=== PATIENT | female | born 1935 | race Caucasian/White ===

== ENCOUNTER 2017-11-13 14:04 | Inpatient (IN) ==
--- NOTE | 2017-11-13 15:04 | Family Practice History&Phys ---
History of Present Illness Chief complaint: Shortness of breath HPI: Over the last several days she has been getting progressively more short of breath. She's developed a cough in the last 24 hours. She recently had a chest x -ray that said probable pneumonia. This was done in [place]. She denies chest pain. She denies fevers chills sweats nausea or vomiting. She did have a blackeye on Sunday morning but forgot how she got it. She denies headache. She denies neck pain. She does have moderate dementia. PFSH Alzheimer's type dementia, depression/anxiety, hypertension, iron deficiency anemia, gastroesophageal reflux disease Surgical History: Colonoscopy and EGD [place] [address] Angel. Gastritis is the only finding. - Social History Smoking status: Never smoker Medications Home Medications Medication Instructions Recorded Confirmed Type Aspirin [Aspir 81] 1 tab PO DAILY #0 tab 03/13/14 History Fish Oil/Dha/Epa [Fish Oil 1,200 1 cap PO DAILY #0 03/13/14 History mg Fish Oil] Lisinopril 10 tab PO BID #0 tab 03/13/14 History Venlafaxine HCl [Venlafaxine HCl 150 mg PO DAILY #0 03/13/14 History ER] dilTIAZem HCl [Cardizem Cd] 120 mg PO BID #0 cap 03/13/14 History Allergies Allergy/AdvReac Type Severity Reaction Status Date / Time NKDA Allergy Mild Uncoded 03/21/10 23:54 Exam Narrative: This is a well-developed adult female who is awake alert and no acute distress. She is very weak and it takes two people to transfer her. Her oxygen saturation's at home range from 72 to 83%. In the clinic are 89 to 91 %. Blood pressure 151/73. Heart rate 101. Her weight is 118 pounds. Pupils are equally round and reactive to light. She has a bruise around her left eye socket. Oropharynx looks normal. Tympanic membranes look normal. Neck is supple without lymphadenopathy. Lungs are course in the bases bilaterally. There's occasional wheezes. Chest x- ray done yesterday showed some pneumonia at [facility]. Heart is regular rhythm and rate. EKG showed left bundle branch block. Abdomen soft nontender nondistended quite thin. Extremities are is no edema or cyanosis. Results - Labs All other labs normal. Assessment and Plan - Assessment and Plan (1) Pneumonia, bacterial Status: Acute She has had a dose of Rocephin and Zithromax today. Tomorrow will start with 1 g IV q.d. And Zithromax for 250 mg daily. Will order supplemental oxygen. Follow -up chest x-ray tomorrow (2) Physical debility Status: Acute I will order physical therapy. For now up with assistance. (3) Iron deficiency anemia Status: Acute Recheck hemoglobin daily. Iron is ordered. (4) AD (Alzheimer's disease) Status: Chronic (5) Depression, major, recurrent Status: Chronic
--- OUTSIDE RECORDS SUMMARY | 2017-11-13 16:21 | External Medical Summary | Summary of Care ---
:1935 Author Name Paco Benavidez M.D. Address [address], [place] [address] Care Team Providers Name Role Phone Paco Benavidez M.D. 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 Refills: 0 Paco Benavidez M.D. Started 07-Jun-2015 ActiveCartia XT 180 MG Oral Capsule Extended Release 24 Hour Take 1 capsule twice daily Refills: 0 Paco Benavidez M.D. Started 07-Jun-2015 ActiveMirtazapine 15 MG Oral Tablet TAKE 1/2 TABLET AT BEDTIME. Refills: 0 Paco Benavidez M.D. Started 07-Jun-2015 ActiveLisinopril 20 MG Oral Tablet take 1/2 tablet twice daily Refills: 0 Paco Benavidez M.D. Started 07-Jun-2015 ActiveIron 325 (65 Fe) MG Oral Tablet TAKE 1 TABLET TWICE DAILY. Refills: 0 Paco Benavidez M.D. Started 07-Jun-2015 ActiveLutein 20 MG Oral Capsule TAKE DIRECTED. Refills: 0 Paco Benavidez M.D. Started 07-Jun-2015 ActiveFish Oil 1200 MG Oral Capsule TAKE DIRECTED. Refills: 0 Paco Benavidez M.D. Started 07-Jun-2015 ActiveVitamin D3 1000 UNIT Oral Capsule TAKE DIRECTED. Refills: 0 Paco Benavidez M.D. Started 07-Jun-2015 ActiveAspirin 81 MG Oral Tablet TAKE 1 TABLET DAILY. Quantity: 30 Refills: 0 Paco Benavidez M.D. Started 07-Jun-2015 Active Allergies and Adverse Reactions Name Dates Details No Known Drug Allergies Status: Active Past Medical History Name Dates Details History of Frequent falls (V15.88, R29.6) Status: Resolved History of head injury (V15.59, Z87.828) Status: Resolved History of hypertension (V12.59, Z86.79) Status: Resolved History of syncope (V15.89, Z87.898) Status: Resolved Procedures Procedure Dates Details History of Hysterectomy History of Tonsillectomy Neuro CSF Profile I 9019 Ordered:11-Jun-2015 NUC CISTERNOGRAM INJ Ordered:08-Jun-2015 Immunization Name Dates Details Immunizations not documented Family History Mother Name Dates Details Family history of Healthy adult (V70.0, Z00.00) Status: Active Father Name Dates Details Family history of myocardial infarction (V17.3, Z82.49) Status: Active Family history of Memory problem (780.93, R41.3) Status: Active Brother Name Dates Details Family history of cardiac disorder (V17.49, Z82.49) Status: Active Family history of Colon cancer (153.9, C18.9) Status: Active Family history of malignant neoplasm of urinary bladder (V16.52, Z80.52) Status: Active Social History Name Dates Details Smoking StatusNever smoker Vital Signs Date Test Result Details 07-Jun-2015 10:32 BP Systolic 118 mm[Hg] Status: BP Diastolic 62 mm[Hg] Status: Heart Rate 84 /min Status: Height 66 in Status: Weight 112.4 lb Status: Body Mass Index Calculated 18.14 kg/m2 Status: Body Surface Area Calculated 1.57 m2 Status: Results Date Description Value Details Results not documented Plan of Care Planned Observations Name Dates Details Planned Goals not documented Goal Planned Encounters Appointment; Provider: Paco Benavidez On 16-Jul-2015 08:30 Appointment; Provider: Schedule Radiology On 09-Jul-2015 10:30 Appointment; Provider: Schedule Radiology On 06-Jul-2015 14:00 Appointment; Provider: Schedule Radiology On 06-Jul-2015 10:30 Appointment; Provider: Schedule Radiology On 06-Jul-2015 10:30 Instructions Instructions not documented Encounters Appointment; Paco Benavidez On 22-Jun-2015 Encounter Diagnosis: Problem not documented 12:00 Appointment; Paco Benavidez On 07-Jun-2015 Encounter Diagnosis: Problem not documented 10:00
--- OUTSIDE RECORDS SUMMARY | 2017-11-13 16:21 | External Medical Summary | Summary of Care ---
:1935 Author Name Paco Benavidez M.D. Address Unavailable Unavailable , Care Team Providers Name Role Phone Paco Benavidez M.D. 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 Refills: 0 Paco Benavidez M.D. 07-Jun-2015 Active Cartia XT 180 MG Oral Capsule Extended Release 24 Hour Take 1 capsule twice daily Refills: 0 Paco Benavidez M.D. 07-Jun-2015 Active Lisinopril 20 MG Oral Tablet take 1/2 tablet twice daily Refills: 0 Paco Benavidez M.D. 07-Jun-2015 Active Fish Oil 1200 MG Oral Capsule TAKE DIRECTED. Refills: 0 Paco Benavidez M.D. 07-Jun-2015 Active Vitamin D3 1000 UNIT Oral Capsule TAKE DIRECTED. Refills: 0 Paco Benavidez M.D. 07-Jun-2015 Active Aspirin 81 MG TABS TAKE 1 TABLET DAILY. Quantity: 30 Refills: 0 Paco Benavidez M.D. 07-Jun-2015 Active Galantamine Hydrobromide ER 16 MG Oral Capsule Extended Release 24 Hour TAKE 1 CAPSULE Daily Quantity: 30 Refills: 5 Paco Benavidez M.D. 17-May-2016 Active LORazepam 0.5 MG Oral Tablet TAKE 1/2 TO 1 TABLET TWICE DAILY NEEDED. Refills: 0 Paco Benavidez M.D. 22-Aug-2016 Active BuPROPion HCl ER (XL) 150 MG Oral Tablet Extended Release 24 Hour TAKE 1 TABLET DAILY. Refills: 0 Paco Benavidez M.D. 21-Nov-2016 Active Allergies and Adverse Reactions Name Dates Details No Known Drug Allergies (Allergy) Status: Active Past Medical History Name Dates Details History of Frequent falls (V15.88, R29.6) Status: Resolved History of head injury (V15.59, Z87.828) Status: Resolved History of hypertension (V12.59, Z86.79) Status: Resolved History of syncope (V15.89, Z87.898) Status: Resolved Procedures Procedure Dates Details History of Hysterectomy History of Tonsillectomy Procedures not documented Immunization Name Dates Details Immunizations not documented Family History Mother Name Dates Details Family history of Healthy adult Status: Active Father Name Dates Details Family history of myocardial infarction (V17.3, Z82.49) Status: Active Family history of Memory problem (780.93, R41.3) Status: Active Brother Name Dates Details Family history of cardiac disorder (V17.49, Z82.49) Status: Active Family history of Colon cancer (153.9, C18.9) Status: Active Family history of malignant neoplasm of urinary bladder (V16.52, Z80.52) Status: Active Social History Name Dates Details - Status: Smoking Status Name Dates Details Never smoker Vital Signs Date Test Result Details 21-Nov-2016 09:26 BP Systolic 110 mm[Hg] Status: Comments: Location: RUE; Position: Sitting BP Diastolic 64 mm[Hg] Status: Comments: Location: RUE; Position: Sitting Heart Rate 74 /min Status: Comments: Location: ; Weight 111.8 lb Status: Physical Findings 98 Status: Comments: O2 Saturation Body Mass Index Calculated 18.04 kg/m2 Status: Body Surface Area Calculated 1.56 m2 Status: Results Date Description Value Details Results not documented Plan of Care Name Dates Details Planned Observations Planned Goals not documented Instructions Name Dates Details Instructions not documented Encounters Appointment; Paco Benavidez M.D. On 22-Aug-2016 Encounter Diagnosis: Problem not documented 09:15 Appointment; Paco Benavidez M.D. On 17-May-2016 Encounter Diagnosis: Problem not documented 09:15 Appointment; Paco Benavidez M.D. On 19-Nov-2015 Encounter Diagnosis: Problem not documented 09:00 Appointment; Paco Benavidez M.D. On 16-Jul-2015 Encounter Diagnosis: Problem not documented 08:30 Appointment; Paco Benavidez M.D. On 22-Jun-2015 Encounter Diagnosis: Problem not documented 12:00 Appointment; Paco Benavidez M.D. On 07-Jun-2015 Encounter Diagnosis: Problem not documented 10:00
--- OUTSIDE RECORDS SUMMARY | 2017-11-13 16:21 | External Medical Summary | Summary of Care ---
:1935 Author Name Paco Benavidez M.D. Address [address] [place], [place] [id number] Care Team Providers Name Role Phone Paco [...]
--- OUTSIDE RECORDS SUMMARY | 2017-11-13 16:22 | External Medical Summary | Summary of Care ---
:1935 Author Name Paco Benavidez M.D. 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 Refills: 0 Paco Benavidez M.D. Start 07-Jun-2015 Active Cartia XT 180 MG Oral Capsule Extended Release 24 Hour Take 1 capsule twice daily Refills: 0 Pramod Whatley [facility] 07-Jun-2015 Active Mirtazapine 15 MG Oral Tablet TAKE 1/2 TABLET AT BEDTIME. Refills: 0 Pramod Whatley [facility] 07-Jun-2015 Active Lisinopril 20 MG Oral Tablet take 1/2 tablet twice daily Refills: 0 Pramod Whatley [facility] 07-Jun-2015 Active Iron 325 (65 Fe) MG Oral Tablet TAKE 1 TABLET TWICE DAILY. Refills: 0 Paco Benavidez M.D. Tone 07-Jun-2015 Active Lutein 20 MG Oral Capsule TAKE DIRECTED. Refills: 0 Paco Benavidez M.D. [facility] 07-Jun-2015 Active Fish Oil 1200 MG Oral Capsule TAKE DIRECTED. Refills: 0 Pramod Whatley [facility] 07-Jun-2015 Active Vitamin D3 1000 UNIT Oral Capsule TAKE DIRECTED. Refills: 0 Pramod Whatley [facility] 07-Jun-2015 Active Aspirin 81 MG TABS TAKE 1 TABLET DAILY. Quantity: 30 Refills: 0 Pramod Whtaley [facility] 07-Jun-2015 Active Allergies and Adverse Reactions Name [...] smoker Vital Signs Date Test Result Details No Known Vitals to report Results Date Description Value Details Results not documented Plan of Care Name Dates Details Planned Observations Planned Goals not documented Planned Encounters Appointment; Provider: Paco Benavidez M.D. On 16-Aug-2016 09:45 Instructions Name Dates Details Instructions not documented Encounters Appointment; Paco Benavidez M.D. On 19-Nov-2015 Encounter Diagnosis: Problem not documented 09:00 Appointment; Paco Benavidez M.D. On 16-Jul-2015 Encounter Diagnosis: Problem not documented 08:30 Appointment; Paco Benavidez M.D. On 22-Jun-2015 Encounter Diagnosis: Problem not documented 12:00 Appointment; Paco Benvaidez M.D. On 07-Jun-2015 Encounter Diagnosis: Problem not documented 10:00
--- OUTSIDE RECORDS SUMMARY | 2017-11-13 16:22 | External Medical Summary | Summary of Care ---
[...] Refills: 0 Paco Benavidez M.D. 07-Jun-2015 Active Iron 325 (65 Fe) MG Oral Tablet TAKE 1 TABLET TWICE DAILY. Refills: 0 Paco Benavidez M.D. 07-Jun-2015 Active Lutein 20 MG Oral Capsule [...] 1 TABLET TWICE DAILY NEEDED. Refills: 0 Pramod Whatley Paco Reema Wayne 22-Aug-2016 Active Memantine HCl - 5 (28)-10 (21) MG Oral Tablet TAKE DIRECTED. Quantity: 3 Refills: 5 Pramod Whatley Paco Reema Wayne 22-Aug-2016 Active Allergies and Adverse Reactions Name Dates [...] smoker Vital Signs Date Test Result Details 22-Aug-2016 09:12 BP Systolic 118 mm[Hg] Status: Comments: Location: LUE; Position: Sitting BP Diastolic 74 mm[Hg] Status: Comments: Location: LUE; Position: Sitting Heart Rate 80 /min Status: Comments: Location: ; Height 66 in Status: Weight 112.8 lb Status: Physical Findings 97 Status: Comments: O2 Saturation Body Mass Index Calculated 18.21 kg/m2 Status: Body Surface Area Calculated 1.57 m2 Status: Results Date Description Value Details Results not documented Plan of Care Name Dates Details Planned Observations Planned Goals not documented Planned Encounters Appointment; Provider: Paco Benavidez M.D. On 21-Nov-2016 09:15 Interventions Provided Medication ChangesMemantine HCl - 5 (28)-10 (21) MG Oral Tablet - Start Instructions Name Dates Details Instructions not documented Encounters Appointment; Paco Benavidez M.D. On 17-May-2016 Encounter [...]
--- OUTSIDE RECORDS SUMMARY | 2017-11-13 16:22 | External Medical Summary | Summary of Care ---
:1935 Author Name Paco Benavidez M.D. Address [address], [place] [address] Care Team Providers Name Role Phone Paco Benavidez M.D. 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
--- OUTSIDE RECORDS SUMMARY | 2017-11-13 16:22 | External Medical Summary | Summary of Care ---
:1935 Author Name Paco Benavidez M.D. Address [address] [place], [place] [id number] Care Team Providers Name Role Phone Paco Benavidez M.D. 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 Report to follow. (Better) 12:52 GLUCOSE, CSF 1132 GLUCOSE, CSF 61.0 mg/dL Range: 40.0-70.0 (Better) 12:52 PROTEIN, CSF 1129 PROTEIN, CSF 38 mg/dL (Better) Range: 15-45 13:02 CELL COUNT, CSF 7628 RBC (CSF) 7 per uL (Better) WBC (CSF) 1 per uL (Better) MONONUCLEAR WBC (CSF) 0 per uL (Better) POLYMORPH. CELLS (CSF) 1 per uL (Better) 13:09 GLUCOSE 1100 GLUCOSE 89 mg/dL (Better) Range: 70-100 09-Jul-2015 09:48 CSF CULTURE [id number] Comments: [facility] performed at: [facility], [address] [place] [address], [address] [place] [address], Line Repairer: Paco Douglas D.O., MPHQuest Collection Date/Time: [id number] Results Received Date/Time: [id number] Reported Date/Time: [id number] performed at: [facility], [address] [place] [address], [address] [place] [address], Line Repairer: Paco Douglas D.O., MPHQuest Collection Date/Time: [id number] Results Received Date/Time: [id number] Reported Date/Time: [id number] Acce ssion #: [id number] performed at: [facility], [address] [place] [address], [address] [place] [address], Line Repairer: Paco Douglas D.O., MPHQuest Collection Date/Time: [id number] est Results Received Date/Time: [id number] Reported Date/Time: [id number] CULTURE, CSF SEE NOTE Comments: CULTURE, CSF MICRO NUMBER: [id number] TEST STATUS: FINAL SPECIMEN SOURCE: CEREBROSPINAL FLUID (CSF ) SPECIMEN QUALITY: ADEQUATE GRAM STAIN: Gram stain prepared by cytospin (Abnormal) Rare White blood cells seen No organisms seen RESULT: No Growth[NM]----- 08-Jul-2015 11:13 XN NUC CISTERNOGRAM (48 Comments: Exam Date: 07/08/2015 10:29Dictation Date: 07/08/2015 11:13 HR) [id number] XN NUC CISTERNOGRAM (48 (Better) HR) 14:40 CRYPTOCOCCAL ANTIGEN Comments: [facility] performed at: [facility], [id number] [place] [address], , Line Repairer: Duglas Paulson M.D.,PhDQue [id number] st Collection Date/Time: [id number] Results Received Date/ Time: [id number] Reported Date/Time: [id number] SOURCE: CSF (Better) Comments: [AMD]----- CRYPTOCOCCAL AG SCREEN Not Detected Range: Not Detected (Better) Comments: Culture should be performed on the initial positiveantigen test in order to recover the causative organismfor precise identification (C. neoformans vs C. gattii)and potential susceptibility testing. [AMD]----- 14:40 VDRL, CSF [id number] Comments: Testing performed at: [] [address], [address], , Line Repairer: Paco Acuña MD VDRL, CSF Non Reactive Range: Non [place]:<1:1 (Better) Plan of Care Planned Observations Name Dates Details Planned Goals not documented Goal Planned Encounters Appointment; Provider: Paco Benavidez On 19-Nov-2015 09:00 Appointment; Provider: Schedule Radiology On 06-Jul-2015 14:00 Appointment; Provider: Schedule Radiology On 06-Jul-2015 10:30 Appointment; Provider: Schedule Radiology On 06-Jul-2015 10:30 Instructions Instructions not documented Encounters Appointment; Paco Benavidez On 16-Jul-2015 Encounter Diagnosis: Problem not documented 08:30 Appointment; Paco Benavidez On 22-Jun-2015 Encounter Diagnosis: Problem not documented 12:00 Appointment; Paco Benavidez On 07-Jun-2015 Encounter Diagnosis: Problem not documented 10:00
--- OUTSIDE RECORDS SUMMARY | 2017-11-13 16:22 | External Medical Summary | Summary of Care ---
:1935 Author Name Paco Benavidez M.D. Address [address], [place] [address] Care Team Providers Name Role Phone Paco [...] Details History of Hysterectomy History of Tonsillectomy NUC CISTERNOGRAM INJ Ordered:08-Jun-2015 Immunization Name Dates [...] Planned Encounters Appointment; Provider: Paco Benavidez On 07-Jul-2015 08:45 Appointment; Provider: Schedule Radiology On 25-Jun-2015 10:30 Appointment; Provider: Schedule Radiology On 23-Jun-2015 10:30 Appointment; Provider: Paco Benavidez On 22-Jun-2015 12:00 Instructions Instructions not documented Encounters Appointment; Paco Benavidez On 07-Jun-2015 Encounter Diagnosis: Problem not documented 10:00
--- OUTSIDE RECORDS SUMMARY | 2017-11-13 16:22 | External Medical Summary | Summary of Care ---
:1935 Author Name Paco Benavidez M.D. Address [address] [place], [place] [address] Care Team Providers Name Role Phone Paco [...] - MISCELLANEOUS 4445 CYTOLOGY Specimen referred to [facility]. Report to follow. (Better) Plan of Care Planned Observations Name [...]
--- OUTSIDE RECORDS SUMMARY | 2017-11-13 16:22 | External Medical Summary | Summary of Care ---
:1935 Author Name Paco Benavidez M.D. Address [address] [place], [place] [address] Care Team Providers Name Role Phone Paco Benavidez M.D. 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) [...] smoker Vital Signs Date Test Result Details 19-Nov-2015 09:07 BP Systolic 110 mm[Hg] Status: BP Diastolic 68 mm[Hg] Status: Heart Rate 82 /min Status: Weight 118.2 lb Status: O2 SAT 98 % Status: Body Mass Index Calculated 19.08 kg/m2 Status: Body Surface Area Calculated 1.6 m2 Status: Results Date Description Value Details Results not documented Plan of Care Planned Observations Name Dates Details Planned Goals not documented Goal Planned Encounters Appointment; Provider: Paco Benavidez On 17-May-2016 09:15 Appointment; Provider: Schedule Radiology On 06-Jul-2015 14:00 Appointment; Provider: Schedule Radiology On 06-Jul-2015 10:30 Appointment; Provider: Schedule Radiology On 06-Jul-2015 10:30 Instructions Instructions not documented Encounters Appointment; Paco Benavidez On 19-Nov-2015 Encounter Diagnosis: Problem not documented 09:00 Appointment; Paco Benavidez On 16-Jul-2015 Encounter Diagnosis: Problem not documented 08:30 Appointment; Paco Benavidez On 22-Jun-2015 Encounter Diagnosis: Problem not documented 12:00 Appointment; Paco Benavidez On 07-Jun-2015 Encounter Diagnosis: Problem not documented 10:00
[2017-11-13 16:47] VITALS: BMI 19.7
[2017-11-13] MEDS: D5-1/2NS with KCL 20mEq 1,000 ML IV SCH (16:58)
[2017-11-13] MEDS: CEFTRIAXONE 1 G in NS 100 ML IV SCH (16:59)
[2017-11-14] MEDS: D5-1/2NS with KCL 20mEq 1,000 ML IV SCH ×3 (01:34→18:34)
[2017-11-14] MEDS: AZITHROMYCIN 250 MG TABLET PO SCH (06:00)
[2017-11-14] MEDS: OMEPRAZOLE 20 MG CAPSULE PO SCH (06:00)
--- NOTE | 2017-11-14 07:42 | XRay Report ---
EXAM: XR chest 2V HISTORY: pneumonia COMPARISON: No available studies for comparison. FINDINGS: The heart appears mildly enlarged. The trachea is midline and there is no evidence of mediastinal widening. There is diffuse plaque formation seen in the thoracic and abdominal aorta. The pulmonary vascularity is normal. There are bilateral pleural effusions that are small to moderate size left greater than right. Patchy groundglass infiltrates are seen in the left perihilar region and there are by basilar opacities adjacent to the pleural effusions likely reflecting atelectasis or infiltrate. Patchy ground glass infiltrate is also seen in the right upper lobe. The bony thorax shows mild to moderate degenerative changes in the moderately kyphotic dorsal spine and mild degenerative changes in the shoulder joints bilaterally. There is a tiny calcification adjacent to the greater tuberosity of the right humeral head which may represent minimal right rotator cuff calcific tendinitis. IMPRESSION: 1. There are small to moderate-sized bilateral pleural effusions, left greater than right with subjacent atelectasis and/or infiltrate at the lung bases. 2. Patchy ground glass infiltrate in the left perihilar region and right upper lobe. 2. The heart appears mildly enlarged, there are no overt congestive changes. 3. ASVD. 4. Possible right rotator cuff calcific tendinitis. .
[2017-11-14] MEDS ORDERED: Venlaflaxine XR 75 MG CAPSULE (24hr) PO SCH (08:00)
[2017-11-14] MEDS ORDERED: IRON - PHARMACY CONSULT MC ONE (08:26)
--- NOTE | 2017-11-14 08:31 | Family Practice Progress Note ---
Progress Note-A&P - Time Spent With Patient Total time spent is greater than 50% in coordination of care (as documented) at patient's floor/unit and/or counseling patient: (1) Pneumonia, bacterial Status: Acute Assessment and plan: Continue the Rocephin and Zithromax. I'm going to add albuterol. Her oxygen saturation's have not significantly improved. Continue IV fluids for now. Current Visit: No (2) Physical debility Status: Acute Assessment and plan: Physical therapy is consulted. Continue IV fluids. Current Visit: No (3) Iron deficiency anemia Status: Acute Assessment and plan: Consult in pharmacy for iron deficiency anemia. Possible IV iron. Current Visit: No (4) AD (Alzheimer's disease) Status: Chronic Current Visit: No (5) Depression, major, recurrent Status: Acute Assessment and plan: I'm going to increase her venlafaxine to 150 mg a day. Current Visit: No Subjective - Subjective Principal diagnosis: Anemia and sob and weakness Interval history: She did not sleep well last night. She reports she still feels shorter breath she hasn't been coughing much. She does have a runny nose and a lot of phlegm. She denies chills, nausea, vomiting or diarrhea. She has been more depressed recently. She is asking if her depression medication can be increased. Exam Vital signs: Temperature 97.6 F 11/14/17 04:00 Pulse Rate 85 11/14/17 04:00 Respiratory Rate 18 11/14/17 04:00 Blood Pressure 134/63 11/14/17 04:00 Pulse Oximetry 90 11/14/17 04:00 Inpatient Medications: Generic Name Dose Route Start Last Admin Trade Name Freq PRN Reason Stop Dose Admin Albuterol Sulfate 2.5 mg 11/14/17 11:00 Proventil Neb (0.5%) AEROSOL RTQID STEVE Aspirin 81 mg 11/14/17 09:00 Asa PO DAILY STEVE Azithromycin 250 mg 11/14/17 06:30 11/14/17 06:00 Zithromax PO 250 mg ACB STEVE Administration Bupropion HCl 150 mg 11/14/17 09:00 Wellbutrin Xl PO DAILY STEVE Diltiazem HCl 240 mg 11/14/17 09:00 Cardizem Cd 240 Mg PO DAILY STEVE Ferrous Sulfate 324 mg 04/11/18 08:00 Feosol PO WB STEVE Galantamine Hydrobromide 16 mg 11/14/17 08:00 Razadyne Er PO WB STEVE Ceftriaxone Sodium 1 g/ Sodium 100 mls @ 200 mls/hr 11/13/17 15:00 11/13/17 17:29 Chloride IV Infused Q24H STEVE Infusion Potassium Chloride/Dextrose/Sod Cl 1,000 mls @ 100 mls/hr 11/13/17 15:00 06/23 03:36 D5-1/2ns With Kcl 20meq Premix IV 100 mls/hr .Q10H STEVE Administration Lisinopril 10 mg 11/14/17 09:00 Prinivil PO DAILY STEVE Omeprazole 40 mg 11/14/17 06:30 11/14/17 06:00 Prilosec PO 40 mg ACB STEVE Administration Venlafaxine HCl 75 mg 11/14/17 08:00 Effexor Xr PO WB STEVE - Constitutional no acute distress - Routine HEENT Exam Head: Present: normocephalic Comments: She has a bruise around her left eye lid. - Routine Respiratory Exam Present: CTA bilaterally - Routine Cardiovascular Exam Present: RRR - Routine Abdominal Exam Present: soft, normoactive bowel sounds - Routine Extremities Exam Present: no edema
--- NOTE | 2017-11-14 08:57 | Pharmacy Consult ---
Pharmacy Consult-[facility] - Laboratory Information [facility] 11/13/17 17:25 Hgb 8.9 L Hct 28.2 L - Consult Information Dx: Chronic Anemia: Will give TDI (Total Dose Infusion) over 4 hours. Actual body weight = 51.5kg Hgb Level = 8.9 g/dL Calculated Dosing weight = 54 kg Total dose needed: 1,300 mg (26 mL) Will give test dose of 25mg IV push over 30 seconds. Watch VS q 15 minutes x 1 hr. (watching for anaphylaxis, respiratory distress, hives.) If no reaction will give full dose in NS 500ml TRA 125ml/hr. Watch VS q 1 hr during infusion. Thank you.
[2017-11-14] MEDS: LORazepam 0.5 MG TABLET PO PRN ×2 (09:03→20:34)
[2017-11-14] MEDS: LISINOPRIL 10 MG TABLET PO SCH (09:07)
[2017-11-14] MEDS: GALANTAMINE 16 MG PO SCH (09:07)
[2017-11-14] MEDS: BuPROPion XL 150mg (24HR) TABLET PO SCH (09:07)
[2017-11-14] MEDS: FERROUS SULFATE 324 MG TABLET PO SCH (09:07)
[2017-11-14] MEDS: ASPIRIN 81 MG CHEWABLE TABLET PO SCH (09:08)
[2017-11-14] MEDS ORDERED: IRON DEXTRAN COMPLEX 100mg/2ml INJECTION IV ONE (09:30)
[2017-11-14] MEDS ORDERED: IRON DEXTRAN IV ONE (11:00)
[2017-11-14] MEDS ORDERED: NS IV ONE (11:00)
[2017-11-14] MEDS ORDERED: METHYLPREDNISOLONE SOD SUCC 125mg/2ml INJECTION IVP ONE (13:00)
[2017-11-14] MEDS: ALBUTEROL 2.5mg/3ml (0.083%) NEB AEROSOL SCH ×3 (13:40→20:49)
--- NOTE | 2017-11-14 15:36 | XRay Report ---
EXAM: XR chest 1V HISTORY: Shortness of air COMPARISON: Prior examination performed earlier the same day five T2 a.m. FINDINGS: There has been slight interval worsening of the patchy bilateral heterogeneous opacities left greater than right . The heart is again noted to be enlarged. The trachea remains midline is no mediastinal widening. There is been interval development of pulmonary vascular congestion suggesting developing underlying changes of congestive heart failure. There are stable small to moderate-sized bilateral pleural effusions left greater than right unchanged. The bony thorax is stable. IMPRESSION: 1. Cardiomegaly with developing changes of congestive heart failure. 2. Slight interval worsening of the bilateral patchy infiltrates left greater than right. 3. Stable small to moderate size bilateral pleural effusions left greater than right. .
[2017-11-14] MEDS: CEFTRIAXONE 1 G in NS 100 ML IV SCH (16:52)
[2017-11-14] MEDS ORDERED: FALL RISK - PHARMACY CONSULT MC ONE (18:53)
[2017-11-15] MEDS: LORazepam 0.5 MG TABLET PO PRN (02:32)
[2017-11-15] MEDS: ALBUTEROL 2.5mg/3ml (0.083%) NEB AEROSOL SCH ×4 (06:29→20:03)
[2017-11-15] MEDS: OMEPRAZOLE 20 MG CAPSULE PO SCH (06:38)
[2017-11-15] MEDS: AZITHROMYCIN 250 MG TABLET PO SCH (06:38)
--- NOTE | 2017-11-15 07:45 | Family Practice Progress Note ---
Progress Note-A&P - Time Spent With Patient Total time spent is greater than 50% in coordination of care (as documented) at patient's floor/unit and/or counseling patient: (1) Pneumonia, bacterial Status: Acute Assessment and plan: Continue antibiotics. She is getting supplemental oxygen. She's getting nebulized medication. Yesterday the oxygen level dropped quite a bit and we needed significant amounts of supplemental oxygen. Chest x-ray looked worse and so IV fluids are stopped. Chest x-rays pending today. Current Visit: No (2) Physical debility Status: Acute Assessment and plan: Physical therapy Current Visit: No (3) Iron deficiency anemia Status: Acute Assessment and plan: She seemed to have a reaction to the IV iron. Will discontinue that. Continued PO iron. Current Visit: No (4) AD (Alzheimer's disease) Status: Chronic Current Visit: No (5) Depression, major, recurrent Status: Acute Assessment and plan: Dose increased yesterday Current Visit: No (6) Constipation Status: Acute Assessment and plan: Will add Colace Current Visit: Yes Subjective - Subjective Principal diagnosis: pneumonia Interval history: Her breathing is better. She is not struggling on the breathe. She denies chills or sweats nausea vomiting. She had a hard bowel movement yesterday Exam Vital signs: Temperature 96.7 F L 11/15/17 04:57 Pulse Rate 94 11/15/17 04:57 Respiratory Rate 20 11/15/17 06:29 Blood Pressure 133/70 11/15/17 04:57 Pulse Oximetry 97 11/15/17 06:29 Inpatient Medications: Generic Name Dose Route Start Last Admin Trade Name Freq PRN Reason Stop Dose Admin Albuterol Sulfate 2.5 mg 11/14/17 11:00 11/15/17 06:29 Proventil Neb (0.083%) AEROSOL 2.5 mg RTQID STEVE Administration Aspirin 81 mg 11/14/17 09:00 11/14/17 09:08 Asa PO 81 mg DAILY STEVE Administration Azithromycin 250 mg 11/14/17 06:30 11/15/17 06:38 Zithromax PO 250 mg ACB STEVE Administration Bupropion HCl 150 mg 11/14/17 09:00 11/14/17 09:07 Wellbutrin Xl PO 150 mg DAILY STEVE Administration Diltiazem HCl 240 mg 11/14/17 09:00 11/14/17 09:06 Cardizem Cd 240 Mg PO 240 mg DAILY STEVE Administration Ferrous Sulfate 324 mg 11/14/17 08:00 11/14/17 09:07 Feosol PO 324 mg WB STEVE Administration Galantamine Hydrobromide 16 mg 11/14/17 08:00 11/14/17 09:07 Razadyne Er PO 16 mg WB STEVE Administration Ceftriaxone Sodium 1 g/ Sodium 100 mls @ 200 mls/hr 11/13/17 15:00 11/14/17 17:22 Chloride IV Infused Q24H STEVE Infusion Lisinopril 10 mg 11/14/17 09:00 11/14/17 09:07 Prinivil PO 10 mg DAILY STEVE Administration Lorazepam 0.5 mg 11/14/17 08:47 11/15/17 02:32 Ativan PO 0.5 mg QID PRN Administration Omeprazole 40 mg 11/14/17 06:30 11/15/17 06:38 Prilosec PO 40 mg ACB STEVE Administration Venlafaxine HCl 150 mg 11/14/17 08:33 11/14/17 09:06 Effexor Xr PO 150 mg WB STEVE Administration Discontinued Medications Generic Name Dose Route Start Last Admin Trade Name Freq PRN Reason Stop Dose Admin Potassium Chloride/Dextrose/Sod Cl 1,000 mls @ 100 mls/hr 11/13/17 15:00 06/23 18:34 D5-1/2ns With Kcl 20meq Premix IV Not Given .Q10H STEVE Iron Dextran 1,300 mg/ Sodium 526 mls @ 125 mls/hr 11/14/17 11:00 11/14/17 14 :07 Chloride IV 11/14/17 15:12 Not Given O ONE Iron Dextran 1 each 11/14/17 08:26 Pharmacy Consult - [facility] 11/14/17 08:27 O ONE Iron Dextran 25 mg 11/14/17 09:30 11/14/17 11:41 Infed IV 11/14/17 09:31 25 mg O ONE Administration Methylprednisolone Sodium Succinate 125 mg 11/14/17 13:00 11/14/17 14:10 Solu-Medrol IVP 11/14/17 13:01 125 mg DAILY ONE Administration Pharmacy Consult each 11/14/17 18:53 Pharmacy Consult - Fall Risk 11/14/17 18:54 ONE TIME ONE Venlafaxine HCl 75 mg 11/14/17 08:00 11/14/17 09:51 Effexor Xr PO Not Given WB STEVE - Constitutional no acute distress - Routine HEENT Exam Head: Present: normocephalic - Routine Neck Exam Present: supple - Routine Respiratory Exam Comments: Crackles in the bases posteriorly bilaterally. No retractions - Routine Cardiovascular Exam Present: RRR - Routine Abdominal Exam Present: soft - Routine Extremities Exam Present: no edema
[2017-11-15] MEDS ORDERED: DOCUSATE SODIUM 100 MG CAPSULE PO PRN (07:47)
[2017-11-15] MEDS: BuPROPion XL 150mg (24HR) TABLET PO SCH (10:21)
[2017-11-15] MEDS: FERROUS SULFATE 324 MG TABLET PO SCH (10:21)
[2017-11-15] MEDS: GALANTAMINE 16 MG PO SCH (10:21)
[2017-11-15] MEDS: LISINOPRIL 10 MG TABLET PO SCH (10:21)
[2017-11-15] MEDS: ASPIRIN 81 MG CHEWABLE TABLET PO SCH (10:22)
--- NOTE | 2017-11-15 12:00 | XRay Report ---
Indication: pna PROCEDURE: XR chest 2V: Encounter: Initial Comparison: 11/14/2017 Findings: Moderate interstitial edema which is slightly asymmetrically increased on the left. There is also bilateral pleural effusions with bibasilar atelectasis, left greater than right. Trachea is midline. No subdiaphragmatic free air. No pneumothorax. Impression: Moderate CHF with bilateral pleural effusions and bibasilar atelectasis, left greater than right. .
[2017-11-15] MEDS: CEFTRIAXONE 1 G in NS 100 ML IV SCH (16:10)
[2017-11-16] MEDS: LORazepam 0.5 MG TABLET PO PRN ×4 (01:35→22:00)
[2017-11-16] MEDS: AZITHROMYCIN 250 MG TABLET PO SCH (05:42)
[2017-11-16] MEDS: OMEPRAZOLE 20 MG CAPSULE PO SCH (05:42)
[2017-11-16] MEDS: ALBUTEROL 2.5mg/3ml (0.083%) NEB AEROSOL SCH ×4 (07:14→19:33)
--- NOTE | 2017-11-16 08:00 | Family Practice Progress Note ---
Progress Note-A&P - Time Spent With Patient Total time spent is greater than 50% in coordination of care (as documented) at patient's floor/unit and/or counseling patient: (1) Pneumonia, bacterial Status: Acute Assessment and plan: It looks like she may be developing worsening pneumonia or CHF. Continue antibiotics and oxygen and nebulized medication and I'm checking a echocardiogram. I'm going to start Lasix and potassium and recheck chest x-ray tomorrow morning. Current Visit: No (2) Physical debility Status: Acute Assessment and plan: Physical therapy Current Visit: No (3) Iron deficiency anemia Status: Acute Assessment and plan: Continued PO iron. Current Visit: No (4) AD (Alzheimer's disease) Status: Chronic Current Visit: No (5) Depression, major, recurrent Status: Acute Current Visit: No (6) Constipation Status: Acute Current Visit: Yes (7) Pulmonary edema Status: Acute Assessment and plan: Ordering Lasix. Repeat chest x-ray tomorrow and checking in a car cardiogram. Current Visit: Yes Subjective - Subjective Principal diagnosis: pneumonia Exam Vital signs: Temperature 97.2 F 11/16/17 04:00 Pulse Rate 91 11/16/17 04:00 Respiratory Rate 20 11/16/17 07:14 Blood Pressure 158/69 H 11/16/17 04:00 Pulse Oximetry 98 11/16/17 07:14 Inpatient Medications: Generic Name Dose Route Start Last Admin Trade Name Freq PRN Reason Stop Dose Admin Albuterol Sulfate 2.5 mg 11/14/17 11:00 11/16/17 07:14 Proventil Neb (0.083%) AEROSOL 2.5 mg RTQID STEVE Administration Aspirin 81 mg 11/14/17 09:00 11/15/17 10:22 Asa PO 81 mg DAILY STEVE Administration Azithromycin 250 mg 11/14/17 06:30 11/16/17 05:42 Zithromax PO 250 mg ACB STEVE Administration Bupropion HCl 150 mg 11/14/17 09:00 11/15/17 10:21 Wellbutrin Xl PO 150 mg DAILY STEVE Administration Diltiazem HCl 240 mg 11/14/17 09:00 11/15/17 10:22 Cardizem Cd 240 Mg PO 240 mg DAILY STEVE Administration Docusate Sodium 100 mg 11/15/17 07:47 Colace PO DAILY PRN Ferrous Sulfate 324 mg 11/14/17 08:00 11/15/17 10:21 Feosol PO 324 mg WB STEVE Administration Galantamine Hydrobromide 16 mg 11/14/17 08:00 11/15/17 10:21 Razadyne Er PO 16 mg WB STEVE Administration Ceftriaxone Sodium 1 g/ Sodium 100 mls @ 200 mls/hr 11/13/17 15:00 11/15/17 17:10 Chloride IV Infused Q24H STEVE Infusion Lisinopril 10 mg 11/14/17 09:00 11/15/17 10:21 Prinivil PO 10 mg DAILY STEVE Administration Lorazepam 0.5 mg 11/14/17 08:47 11/16/17 01:35 Ativan PO 0.5 mg QID PRN Administration Omeprazole 40 mg 11/14/17 06:30 11/16/17 05:42 Prilosec PO 40 mg ACB STEVE Administration Venlafaxine HCl 150 mg 11/14/17 08:33 11/15/17 10:21 Effexor Xr PO 150 mg WB STEVE Administration Discontinued Medications Generic Name Dose Route Start Last Admin Trade Name Freq PRN Reason Stop Dose Admin Potassium Chloride/Dextrose/Sod Cl 1,000 mls @ 100 mls/hr 11/13/17 15:00 06/23 18:34 D5-1/2ns With Kcl 20meq Premix IV Not Given .Q10H STEVE Iron Dextran 1,300 mg/ Sodium 526 mls @ 125 mls/hr 11/14/17 11:00 11/14/17 14 :07 Chloride IV 11/14/17 15:12 Not Given O ONE Iron Dextran 1 each 11/14/17 08:26 11/16/17 06:42 Pharmacy Consult - Iron 11/14/17 08:27 Not Given O ONE Iron Dextran 25 mg 11/14/17 09:30 11/14/17 11:41 Infed IV 11/14/17 09:31 25 mg O ONE Administration Methylprednisolone Sodium Succinate 125 mg 11/14/17 13:00 11/14/17 14:10 Solu-Medrol IVP 11/14/17 13:01 125 mg DAILY ONE Administration Pharmacy Consult each 11/14/17 18:53 Pharmacy Consult - Fall Risk 11/14/17 18:54 ONE TIME ONE Venlafaxine HCl 75 mg 11/14/17 08:00 11/14/17 09:51 Effexor Xr PO Not Given WB STEVE
[2017-11-16] MEDS: FERROUS SULFATE 324 MG TABLET PO SCH (09:14)
[2017-11-16] MEDS: BuPROPion XL 150mg (24HR) TABLET PO SCH (09:15)
[2017-11-16] MEDS: GALANTAMINE 16 MG PO SCH (09:15)
[2017-11-16] MEDS: ASPIRIN 81 MG CHEWABLE TABLET PO SCH (09:16)
[2017-11-16] MEDS: LISINOPRIL 10 MG TABLET PO SCH (09:16)
[2017-11-16] MEDS: FUROSEMIDE 40 MG TABLET PO SCH ×2 (09:16→17:46)
--- NOTE | 2017-11-16 10:47 | Echocardiogram ---
DATE 11/16/2017 INDICATION Congestive heart failure TECHNICAL QUALITY: Technically good 2D, M-mode and Doppler echocardiographic images were submitted for interpretation. FINDINGS 1. CARDIAC CHAMBERS. Left atrium is borderline enlarged, measures 3.8 cm. Left ventricle is markedly dilated, measures 6.75 cm. Aortic root diameter is normal. RV size and contractility appear normal. 2. LV FUNCTION. Wall thickness is normal. Wall motion analysis is abnormal with marked thinning echogenicity and hypokinesis to akinesis of the anterior septum and anterior wall suggestive of a prior myocardial infarction. The inferior wall is severely hypokinetic to akinetic. The best moving segments are seen in the inferior lateral wall. Severe LV systolic dysfunction is present. Ejection fraction measures 28% and visually estimated at about 25% . Diastolic function assessment shows E/A ratio of 1.1. 3. VALVES. Aortic valve is trileaflet, exhibits mild sclerotic changes. Valve excursion is normal. Mitral valve exhibits annular calcification. Valve excursion is normal. Tricuspid valve structure and motion appear normal with normal valve excursion. 4. DOPPLER. Doppler shows up to moderate aortic regurgitation, mild to moderate mitral regurgitation, eccentric jet projected posteriorly. Very mild tricuspid regurgitation and trace pulmonic insufficiency. 5. No evidence of pericardial effusion, intracardiac masses, thrombi, vegetations or shunts. There is a pleural effusion seen. 6. Systolic PA pressure estimated at 33 mmHg per Bernoulli equation. IVC assessment shows partial collapse suggestive of ??high central venous pressure. IMPRESSION 1. Borderline left atrial enlargement. 2. 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 3. Moderate aortic regurgitation. 4. Mild to moderate mitral regurgitation. MTDD
--- NOTE | 2017-11-16 13:59 | Cardiology Consult Note ---
History of Present Illness Consult reason: congestive heart failure History of present illness: Chief complaint: Shortness of breath HPI: 82 yo wf w/o prior known heart diease, she 's been diagnosed with dementia , she lives alone at home but family memebrs check on her regularly.She has limited physical activity. she s been followed closely by [facility] nurses since she got enrolled. she was admitted to [facility] several days ago ,because Over the last several days she has been getting progressively more short of breath. She's developed a cough in the preceeding 24 hours. She recently had a chest x-ray that said probable pneumonia. This was done in [place]. She denies chest pain. She denies fevers chills sweats nausea or vomiting. She did have a blackeye on Sunday morning but forgot how she got it. She denies headache. She denies neck pain. She does have moderate dementia. She admitted and treated for pneumonia with IV hydration and IV antibiotics, however her condition worsened worsening dyspnea hypoxemia requiring oxygen and taken up to 9-10 L/m Now down to 5 L/m . 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 Patient doesn't have any known previous cardiac history unknown UT CHF or previous heart catheter or stress test. Patient's was started on by mouth Lasix and her weight has gone down by 2 kg was appears to be accurate. She 's a poor historian, therefore history most of the history is taken from Dr. Patrick's H&P and her caring son and daughter. For the last 2-4 weeks patient experiencing shortness of breath and fatigue walking 100 yards. Or less. No orthopnea PND or previous lower extremity edema adamantly deny any reported chest pain. No known diabetes, positive hypertension , lipid status unknown. no reprted CP or pressure. no reported palpitations or syncope . Patient has a DO NOT RESUSCITATE order she is not on telemetry. Family history father from a heart attack in his 70s and mother at age 98 . patient's sister was diagnosed with hypertrophic obstructive cardio myopathy Patient was never a smoker. Review of Systems All systems PM: 10-point ROS was reviewed, no additional remarkable complaints except - Constitutional Constitutional: Present: fatigue PFSH Patient Stated Medical History Cataracts Yes: mild Hypertension Yes Hx Urinary Tract Infection Yes Anemia Yes Shingles Yes Depression Yes Surgical History: Colonoscopy and EGD [place] [address] Angel. Gastritis is the only finding. Family History: Positive for heart disease CHPI - Social History Smoking status: Never smoker Current residence: Apartment/Private Home Medications Home Medications Medication Instructions Recorded Confirmed Type Fish Oil/Dha/Epa [Fish Oil 1,200 1 cap PO DAILY #0 03/13/14 History mg Fish Oil] Venlafaxine HCl [Venlafaxine HCl 150 mg PO DAILY #0 03/13/14 History ER] Aspirin Chewable [ASA] 81 mg PO DAILY 11/13/17 11/13/17 History Cholecalciferol (Vitamin D3) 1,000 unit PO DAILY 11/13/17 11/13/17 History [Vitamin D3] Ferrous Sulfate 325 mg PO DAILY 11/13/17 11/13/17 History Galantamine ER [Razadyne ER] 16 mg PO DAILY 11/13/17 11/13/17 History Lisinopril [Prinivil] 10 mg PO DAILY 11/13/17 11/13/17 History Omeprazole 40 mg PO DAILY 11/13/17 11/13/17 History buPROPion HCl [Bupropion Xl] 150 mg PO DAILY 11/13/17 11/13/17 History Albuterol Neb (0.083%) [Proventil 2.5 mg AEROSOL RTQID each 11/19/17 Rx Neb (0.083%)] Aspirin Chewable [ASA] 81 mg PO DAILY tab.chew 11/19/17 Rx Atorvastatin [Lipitor] 10 mg PO HS tab 11/19/17 Rx BuPROPion XL [Wellbutrin Xl] 150 mg PO DAILY tab.er.24h 11/19/17 Rx Carvedilol [Coreg] 6.25 mg PO BIDWM tab 11/19/17 Rx Ferrous Sulfate [Feosol] 324 mg PO WB tab 11/19/17 Rx Furosemide [Lasix 40 mg Tab] 40 mg PO DAILY tab 11/19/17 Rx Galantamine ER [Razadyne ER] 16 mg PO WB cap 11/19/17 Rx Lisinopril [Prinivil] 10 mg PO DAILY tab 11/19/17 Rx Omeprazole [Prilosec] 40 mg PO ACB cap 11/19/17 Rx Potassium Chloride [K-DUR 10 mEq 10 meq PO WB tab 11/19/17 Rx Tablet] Allergies Allergy/AdvReac Type Severity Reaction Status Date / Time No Known Allergies Allergy Verified 11/13/17 16:21 Exam Vital signs: Temperature 97.3 F 11/16/17 12:32 Pulse Rate 93 11/16/17 12:32 Respiratory Rate 14 11/16/17 12:32 Blood Pressure 135/65 11/16/17 12:32 Pulse Oximetry 96 11/16/17 12:32 - Constitutional no acute distress, thin, cachectic, cooperative, other (frail) - Routine HEENT Exam Head: Present: normocephalic, abrasion (left eye mild ecchymosis periorbital). Absent: atraumatic (Periorbital bruise on the left), facial swelling Eye: Present: EOMI, PERRL ENT: Present: mucous membranes dry Nose: dry mucous membranes Throat: normal inspection - Routine Neck Exam Present: normal carotid upstroke. Absent: JVD (no obvious JVD in upright position), carotid bruit, lymphadenopathy, thyromegaly - Routine Respiratory Exam Present: distant breath sounds (in both bases positive dullness to percussion no crackles or wheezes) - Routine Cardiovascular Exam Present: murmur (soft grade 1/6 ALANSI at the base of the heart), irregular rhythm. Absent: S3, S4, bradycardia, tachycardia - Routine Abdominal Exam Present: soft, normoactive bowel sounds, non distended, non tender. Absent: organomegaly - Routine Extremities Exam Present: edema (1+ pitting edema both ankles). Absent: cyanosis, clubbing - Routine Skin Exam Present: intact, warm. Absent: cyanosis, erythema - Routine Neurological Exam Present: alert, CN II-XII intact, moving all extremities, vision grossly intact , normal speech. Absent: oriented X3 (confused), motor deficit, hemineglect, facial asymmetry - Routine Psychiatric Exam Present: normal affect (somewhat flat, confused), cooperative. Absent: normal thought process, good insight, good judgment, depressed, anxious Results 11/18/17 03:57 11/18/17 03:57 Cardiac Enzymes 11/16/17 Range/Units 00:15 B-Natriuretic Peptide Cancelled Coagulation 11/16/17 Range/Units 00:15 B-Natriuretic Peptide Cancelled CBC 11/16/17 Range/Units 00:15 WBC 9.0 D (4.5-11.0) T/MM3 RBC 3.49 L (4.00-5.20) M/MM3 Hgb 9.1 L (12-16) GM/DL Hct 29.4 L (36-46) % Plt Count 223 (130-400) T/MM3 Comprehensive Metabolic Panel 11/16/17 Range/Units 00:15 Sodium 146 H (134-144) MEQ/L Potassium 4.8 (3.6-5) MEQ/L Chloride 112 H (98-107) MEQ/L Carbon Dioxide 21 L (22-30) MEQ/L BUN 37.0 H (7-17) MG/DL Creatinine 1.2 (0.7-1.2) mg/dL Glucose 118 H (65-110) MG/DL Calcium 9.2 (8.4-10.2) MG/DL Intake and Output 11/15/17 11/16/17 11/16/17 22:59 06:59 14:59 Intake Total 100 / 100 300 / 300 150 / 150 Output Total 200 / 200 400 / 400 Balance 100 / 100 100 / 100 -250 / -250 Intake: IV 100 / 100 Ceftriaxone 1 g In Ns 100 ml @ 100 / 100 200 mls/hr IV Q24H [facility] Rx#: [id number] Oral 300 / 300 150 / 150 Output: Urine 200 / 200 400 / 400 Other: Urine Appearance Clear Clear Urine Color Yellow Light Destiney Yellow # Voids 1 1 # Incontinent Voids 1 Weight 83.3 kg Patient Weight 11/17/17 06:59 Weight 83.3 kg - Imaging and Cardiology Echo: report reviewed, image reviewed EKG results: report reviewed, image reviewed - EKG Interpretation EKG: sinus rhythm EKG interpretations - Dysrhythmias Sinus rhythms and dysrhythmias: sinus rhythm Supraventricular dysrhythmia: atrial premature complexes - Blocks, axis, hypertrophy, ST abn AV and intraventricular conduction: left bundle branch block (fixed/intermittent , complete/incomplete) (complete QRS duration 146 ms) - UT, pacemaker, normal Myocardial infarction: inferior UT (old age indeterminate) (versus left axis deviation), poor R wave progression Assessment and Plan - Assessment and Plan Systolic congestive heart failure due to probably ischemic severe cardio myopathy, probably acute on chronic, hypervolemic, [place] Heart Association function class IIIB [place] [employer] cardi[employer]/Citizen [place] Heart Association stage C Left bundle branch block PACs Dementia Iron deficiency anemia Hypertension Patient has a DO NOT RESUSCITATE order Long-term prognosis appears poor Diagnosis ,prognosis ,natural history and available medical and invasive diagnostic and treatment modalities discussed with the patient's family Check troponin level and ALT 2 g sodium and heart healthy diet ordered CHF education Agree with the by mouth diuretics Recommend strict I&O's and daily weight and close monitoring of basic metabolic profile to ensure adequate diuresis and improvement in oxygenation and pleural effusions, if necessary may need to switch to IV diuretics such as IV Bumex 1 mg twice a day for a few days, deferred to Dr. Patrick. Discontinue diltiazem due to low ejection fraction Start Coreg 6.25 mg twice a day to replace diltiazem, for hypertension and for CHF Agree with lisinopril Start Lipitor 10 mg daily at bedtime for suspected coronary artery disease If potassium level drops less than 4 and GFR/creatinine remains stable one may add the spironolactone, 25 mg daily without a potassium supplement See orders please Lengthy discussion with the patient family and Dr. Patrick, they're all not interested in any form of invasive procedure , specifically a heart catheterization or a biventricular pacemaker. I personally feel that's quite reasonable given her dementia and obviously respecting her wishes I'll plan on seeing the patient on a when necessary basis next 2 or 3 days ( next time Sunday )please contact me if I could be of further assistance Time spent in excess of 60 minutes with high complexity decision making Thank you for your consultation Hospital Course Summary Disclaimer: The visit summary below is not to be considered part of the above Progress Note.
[2017-11-16] MEDS: CEFTRIAXONE 1 G in NS 100 ML IV SCH (15:20)
[2017-11-16] MEDS: CARVEDILOL 6.25 MG TABLET PO SCH (17:45)
[2017-11-16] MEDS: ATORVASTATIN 10 MG TABLET PO SCH (21:59)
[2017-11-17] MEDS: AZITHROMYCIN 250 MG TABLET PO SCH (06:21)
[2017-11-17] MEDS: LORazepam 0.5 MG TABLET PO PRN ×2 (06:21→21:16)
[2017-11-17] MEDS: OMEPRAZOLE 20 MG CAPSULE PO SCH (06:21)
[2017-11-17] MEDS: ALBUTEROL 2.5mg/3ml (0.083%) NEB AEROSOL SCH ×4 (06:45→20:38)
[2017-11-17] MEDS: BuPROPion XL 150mg (24HR) TABLET PO SCH (08:18)
[2017-11-17] MEDS: CARVEDILOL 6.25 MG TABLET PO SCH ×2 (08:19→17:29)
[2017-11-17] MEDS: LISINOPRIL 10 MG TABLET PO SCH (08:19)
[2017-11-17] MEDS: FUROSEMIDE 40 MG TABLET PO SCH ×2 (08:19→17:29)
[2017-11-17] MEDS: ASPIRIN 81 MG CHEWABLE TABLET PO SCH (08:19)
[2017-11-17] MEDS: GALANTAMINE 16 MG PO SCH (08:19)
[2017-11-17] MEDS: FERROUS SULFATE 324 MG TABLET PO SCH (08:19)
--- NOTE | 2017-11-17 09:31 | Family Practice Progress Note ---
Progress Note-A&P - Time Spent With Patient Total time spent is greater than 50% in coordination of care (as documented) at patient's floor/unit and/or counseling patient: (1) Pneumonia, bacterial Status: Acute Assessment and plan: Stable Current Visit: No (2) Physical debility Status: Acute Assessment and plan: Physical therapy Current Visit: No (3) Iron deficiency anemia Status: Acute Assessment and plan: Continued PO iron. Current Visit: No (4) AD (Alzheimer's disease) Status: Chronic Current Visit: No (5) Depression, major, recurrent Status: Acute Current Visit: No (6) Constipation Status: Acute Current Visit: Yes (7) Pulmonary edema Status: Acute Current Visit: Yes (8) Systolic congestive heart failure Status: Acute Assessment and plan: Continue current medications. Recheck chest x-ray on Sunday. Continue daily weights and I/o. Continue current dose of diuretics. Current Visit: Yes (9) Ischemic cardiomyopathy Status: Acute Current Visit: Yes (10) CHF (NYHA class III, ACC/AHA stage C) Status: Acute Current Visit: Yes Subjective - Subjective Principal diagnosis: CHF Interval history: She reports that she's breathing better and less short of breath. She is eating okay and having regular bowel movements. Exam Vital signs: Temperature 97.2 F 11/17/17 08:00 Pulse Rate 88 11/17/17 08:00 Respiratory Rate 16 11/17/17 06:45 Blood Pressure 126/62 11/17/17 08:00 Pulse Oximetry 94 11/17/17 08:15 Inpatient Medications: Generic Name Dose Route Start Last Admin Trade Name Freq PRN Reason Stop Dose Admin Albuterol Sulfate 2.5 mg 11/14/17 11:00 11/17/17 06:45 Proventil Neb (0.083%) AEROSOL 2.5 mg RTQID STEVE Administration Aspirin 81 mg 11/14/17 09:00 11/17/17 08:19 Asa PO 81 mg DAILY STEVE Administration Atorvastatin Calcium 10 mg 11/16/17 21:00 11/16/17 21:59 Lipitor PO 10 mg HS STEVE Administration Azithromycin 250 mg 11/14/17 06:30 11/17/17 06:21 Zithromax PO 250 mg ACB STEVE Administration Bupropion HCl 150 mg 11/14/17 09:00 11/17/17 08:18 Wellbutrin Xl PO 150 mg DAILY STEVE Administration Carvedilol 6.25 mg 11/16/17 17:30 11/17/17 08:19 Coreg PO 6.25 mg BIDWM STEVE Administration Docusate Sodium 100 mg 11/15/17 07:47 Colace PO DAILY PRN Ferrous Sulfate 324 mg 11/14/17 08:00 11/17/17 08:19 Feosol PO 324 mg WB [facility] Administration Furosemide 40 mg 11/16/17 09:00 11/17/17 08:19 Lasix 40 Mg Tab PO 40 mg 0900,1700 STEVE Administration Galantamine Hydrobromide 16 mg 11/14/17 08:00 11/17/17 08:19 Razadyne Er PO 16 mg WB [facility] Administration Ceftriaxone Sodium 1 g/ Sodium 100 mls @ 200 mls/hr 11/13/17 15:00 11/16/17 15:58 Chloride IV Infused Q24H STEVE Infusion Lisinopril 10 mg 11/14/17 09:00 11/17/17 08:19 Prinivil PO 10 mg DAILY STEVE Administration Lorazepam 0.5 mg 11/14/17 08:47 11/17/17 06:21 Ativan PO 0.5 mg QID PRN Administration Omeprazole 40 mg 11/14/17 06:30 11/17/17 06:21 Prilosec PO 40 mg ACB [facility] Administration Venlafaxine HCl 150 mg 11/14/17 08:33 11/17/17 08:19 Effexor Xr PO 150 mg WB [facility] Administration Discontinued Medications Generic Name Dose Route Start Last Admin Trade Name Freq PRN Reason Stop Dose Admin Diltiazem HCl 240 mg 11/14/17 09:00 11/16/17 09:14 Cardizem Cd 240 Mg PO 240 mg DAILY STEVE Administration Potassium Chloride/Dextrose/Sod Cl 1,000 mls @ 100 mls/hr 11/13/17 15:00 06/23 18:34 D5-1/2ns With Kcl 20meq Premix IV Not Given .Q10H STEVE Iron Dextran 1,300 mg/ Sodium 526 mls @ 125 mls/hr 11/14/17 11:00 11/14/17 14 :07 Chloride IV 11/14/17 15:12 Not Given O ONE Iron Dextran 1 each 11/14/17 08:26 11/16/17 06:42 Pharmacy Consult - Iron MC 11/14/17 08:27 Not Given O ONE Iron Dextran 25 mg 11/14/17 09:30 11/14/17 11:41 Infed IV 11/14/17 09:31 25 mg O ONE Administration Methylprednisolone Sodium Succinate 125 mg 11/14/17 13:00 11/14/17 14:10 Solu-Medrol IVP 11/14/17 13:01 125 mg DAILY ONE Administration Pharmacy Consult each 11/14/17 18:53 Pharmacy Consult - Fall Risk 11/14/17 18:54 ONE TIME ONE Potassium Chloride 20 meq 11/16/17 07:54 11/16/17 09:16 K-Dur 20 Meq Tablet PO 11/16/17 07:55 20 meq O ONE Administration Venlafaxine HCl 75 mg 11/14/17 08:00 11/14/17 09:51 Effexor Xr PO Not Given WB STEVE - Routine HEENT Exam Head: Present: normocephalic - Routine Neck Exam Present: supple - Routine Respiratory Exam Present: decreased breath sounds, CTA bilaterally Comments: She has decreased breath sounds in the left base posteriorly. She has some course sounds posteriorly. - Routine Cardiovascular Exam Present: RRR - Routine Abdominal Exam Present: soft, non tender
[2017-11-17] MEDS: CEFTRIAXONE 1 G in NS 100 ML IV SCH (15:17)
[2017-11-17] MEDS: ATORVASTATIN 10 MG TABLET PO SCH (21:16)
[2017-11-18] MEDS: AZITHROMYCIN 250 MG TABLET PO SCH (06:33)
[2017-11-18] MEDS: OMEPRAZOLE 20 MG CAPSULE PO SCH (06:33)
[2017-11-18] MEDS: ALBUTEROL 2.5mg/3ml (0.083%) NEB AEROSOL SCH ×4 (06:51→19:58)
[2017-11-18] MEDS: LISINOPRIL 10 MG TABLET PO SCH (08:41)
[2017-11-18] MEDS: GALANTAMINE 16 MG PO SCH (08:41)
[2017-11-18] MEDS: ASPIRIN 81 MG CHEWABLE TABLET PO SCH (08:41)
[2017-11-18] MEDS: FERROUS SULFATE 324 MG TABLET PO SCH (08:41)
[2017-11-18] MEDS: FUROSEMIDE 40 MG TABLET PO SCH ×2 (08:41→10:31)
[2017-11-18] MEDS: BuPROPion XL 150mg (24HR) TABLET PO SCH (08:41)
[2017-11-18] MEDS: CARVEDILOL 6.25 MG TABLET PO SCH ×2 (08:41→17:07)
--- NOTE | 2017-11-18 08:49 | Family Practice Progress Note ---
Progress Note-A&P - Time Spent With Patient Total time spent is greater than 50% in coordination of care (as documented) at patient's floor/unit and/or counseling patient: (1) Pneumonia, bacterial Status: Acute Assessment and plan: Stable Current Visit: No (2) Physical debility Status: Acute Assessment and plan: Physical therapy Current Visit: No (3) Iron deficiency anemia Status: Acute Assessment and plan: Continued PO iron. Current Visit: No (4) AD (Alzheimer's disease) Status: Chronic Current Visit: No (5) Depression, major, recurrent Status: Acute Current Visit: No (6) Constipation Status: Acute Assessment and plan: Stable Current Visit: Yes (7) Pulmonary edema Status: Acute Current Visit: Yes (8) Systolic congestive heart failure Status: Acute Assessment and plan: I'm going to decrease Lasix to 40 mg daily. Chest x-ray tomorrow. Continue following daily weights. Current Visit: Yes (9) Ischemic cardiomyopathy Status: Acute Current Visit: Yes (10) CHF (NYHA class III, ACC/AHA stage C) Status: Acute Current Visit: Yes Subjective - Subjective Principal diagnosis: CHF Interval history: She reports that she is doing well. She had a large bowel movement last night. She's breathing better. Her appetite is good. Exam Vital signs: Temperature 97.7 F 11/18/17 07:18 Pulse Rate 90 11/18/17 07:18 Respiratory Rate 12 11/18/17 07:18 Blood Pressure 128/65 11/18/17 07:18 Pulse Oximetry 94 11/18/17 07:18 Inpatient Medications: Generic Name Dose Route Start Last Admin Trade Name Freq PRN Reason Stop Dose Admin Albuterol Sulfate 2.5 mg 11/14/17 11:00 11/18/17 06:51 Proventil Neb (0.083%) AEROSOL 2.5 mg RTQID STEVE Administration Aspirin 81 mg 11/14/17 09:00 11/18/17 08:41 Asa PO 81 mg DAILY STEVE Administration Atorvastatin Calcium 10 mg 11/16/17 21:00 11/17/17 21:16 Lipitor PO 10 mg HS STEVE Administration Azithromycin 250 mg 11/14/17 06:30 11/18/17 06:33 Zithromax PO 250 mg ACB STEVE Administration Bupropion HCl 150 mg 11/14/17 09:00 11/18/17 08:41 Wellbutrin Xl PO 150 mg DAILY STEVE Administration Carvedilol 6.25 mg 11/16/17 17:30 11/18/17 08:41 Coreg PO 6.25 mg BIDWM STEVE Administration Docusate Sodium 100 mg 11/15/17 07:47 Colace PO DAILY PRN Ferrous Sulfate 324 mg 11/14/17 08:00 11/18/17 08:41 Feosol PO 324 mg WB [facility] Administration Furosemide 40 mg 11/16/17 09:00 11/18/17 08:41 Lasix 40 Mg Tab PO 40 mg 0900,1700 STEVE Administration Galantamine Hydrobromide 16 mg 11/14/17 08:00 11/18/17 08:41 Razadyne Er PO 16 mg WB [facility] Administration Ceftriaxone Sodium 1 g/ Sodium 100 mls @ 200 mls/hr 11/13/17 15:00 11/17/17 15:57 Chloride IV Infused Q24H [facility] Infusion Lisinopril 10 mg 11/14/17 09:00 11/18/17 08:41 Prinivil PO 10 mg DAILY [facility] Administration Lorazepam 0.5 mg 11/14/17 08:47 11/17/17 21:16 Ativan PO 0.5 mg QID PRN Administration Omeprazole 40 mg 11/14/17 06:30 11/18/17 06:33 Prilosec PO 40 mg ACB [facility] Administration Potassium Chloride 10 meq 11/18/17 08:00 11/18/17 08:41 K-Dur 10 Meq Tablet PO 10 meq WB [facility] Administration Venlafaxine HCl 150 mg 11/14/17 08:33 11/18/17 08:41 Effexor Xr PO 150 mg WB STEVE Administration Discontinued Medications Generic Name Dose Route Start Last Admin Trade Name Freq PRN Reason Stop Dose Admin Diltiazem HCl 240 mg 11/14/17 09:00 11/16/17 09:14 Cardizem Cd 240 Mg PO 240 mg DAILY STEVE Administration Potassium Chloride/Dextrose/Sod Cl 1,000 mls @ 100 mls/hr 11/13/17 15:00 06/23 18:34 D5-1/2ns With Kcl 20meq Premix IV Not Given .Q10H STEVE Iron Dextran 1,300 mg/ Sodium 526 mls @ 125 mls/hr 11/14/17 11:00 11/14/17 14 :07 Chloride IV 11/14/17 15:12 Not Given O ONE Iron Dextran 1 each 11/14/17 08:26 11/16/17 06:42 Pharmacy Consult - Iron MC 11/14/17 08:27 Not Given O ONE Iron Dextran 25 mg 11/14/17 09:30 11/14/17 11:41 Infed IV 11/14/17 09:31 25 mg O ONE Administration Methylprednisolone Sodium Succinate 125 mg 11/14/17 13:00 11/14/17 14:10 Solu-Medrol IVP 11/14/17 13:01 125 mg DAILY ONE Administration Pharmacy Consult each 11/14/17 18:53 Pharmacy Consult - Fall Risk 11/14/17 18:54 ONE TIME ONE Potassium Chloride 20 meq 11/16/17 07:54 11/16/17 09:16 K-Dur 20 Meq Tablet PO 11/16/17 07:55 20 meq O ONE Administration Venlafaxine HCl 75 mg 11/14/17 08:00 11/14/17 09:51 Effexor Xr PO Not Given WB STEVE - Constitutional no acute distress - Routine HEENT Exam Head: Present: normocephalic - Routine Neck Exam Present: supple - Routine Respiratory Exam Comments: She has some crackles in the basis bilaterally but improved from yesterday. No wheezing. No retractions - Routine Cardiovascular Exam Present: RRR - Routine Abdominal Exam Present: soft, non distended, non tender - Routine Extremities Exam Present: no edema
--- NOTE | 2017-11-18 09:54 | XRay Report ---
INDICATION: pneumonia PROCEDURE: CHEST 2-VIEWS UPRIGHT (PA & LAT) Encounter: Initial COMPARISON: November 15, 2017 FINDINGS: Pleural effusions have decreased with improving aeration of the lung bases and left midlung. Scattered infiltrates remain with apical pleural thickening or scarring. No pneumothorax. Heart size and mediastinal contours are stable. Impression: Improving congestive failure with residual airspace disease that could represent edema or pneumonia. .
[2017-11-18] MEDS: CEFTRIAXONE 1 G in NS 100 ML IV SCH (14:37)
[2017-11-18] MEDS: ATORVASTATIN 10 MG TABLET PO SCH (21:35)
[2017-11-18] MEDS: LORazepam 0.5 MG TABLET PO PRN (21:36)
[2017-11-19 05:00] VITALS: PULSE 101
[2017-11-19] MEDS: ALBUTEROL 2.5mg/3ml (0.083%) NEB AEROSOL SCH ×2 (07:14→10:45)
[2017-11-19] MEDS: AZITHROMYCIN 250 MG TABLET PO SCH (07:36)
[2017-11-19] MEDS: OMEPRAZOLE 20 MG CAPSULE PO SCH (07:36)
[2017-11-19 08:20] VITALS: BP 120/66; TEMP 97; O2SAT 92
--- NOTE | 2017-11-19 08:31 | Discharge Summary ---
Providers Date of admission: 11/13/17 16:16 Primary care physician: Jaime Patrick MD Admitting clinician: Jaime Patrick Attending Physician: Jaime Patrick Consults: 11/16/17 10:05 Physician Consult [CONS] Routine Consulting Provider: Reema Slaughter Reason For Exam: CHF Ordering Provider has Notified Automation Tech: Yes Attending physician on discharge: Jaime Patrick Discharging clinician: Jaime Patrick Anticipated date of discharge: 11/19/17 Diagnosis - Discharge Diagnosis (1) Pneumonia, bacterial Status: Acute Problem details: Admitted with pneumonia and treated with abx and neb medication. Condition declined and cardiac etiology was suspected. Found to have systolic chf. Treated with diuretics and Dr. Pelletier consulted. Over all condition steadily improved with chf treatment. (2) Physical debility Status: Acute (3) Iron deficiency anemia Status: Acute (4) AD (Alzheimer's disease) Status: Chronic (5) Depression, major, recurrent Status: Acute (6) Constipation Status: Acute (7) Pulmonary edema Status: Acute (8) Systolic congestive heart failure Status: Acute (9) Ischemic cardiomyopathy Status: Acute (10) CHF (NYHA class III, ACC/AHA stage C) Status: Acute Summary Hospital course: Today she reports that she's feeling very well. She tried to get out of bed herself. She denies fevers or chills or troubles breathing. She denies cough. - Time Spent with Patient Total time spent providing and/or coordinating discharge services: Exam Vital signs: Temperature 97.0 F 11/19/17 08:00 Pulse Rate 101 H 11/19/17 08:00 Respiratory Rate 20 11/19/17 08:00 Blood Pressure 120/66 11/19/17 08:00 Pulse Oximetry 92 11/19/17 08:00 - Constitutional no acute distress - Routine HEENT Exam Head: Present: normocephalic Comments: Bruise is still in the stage of healing around the left eye - Routine Neck Exam Present: supple - Routine Respiratory Exam Present: CTA bilaterally - Routine Cardiovascular Exam Present: irregularly irregular - Routine Abdominal Exam Present: soft, non tender - Routine Extremities Exam Present: no edema DS: Data Completed studies during hospitalization [Text]: Echo and multiple cxr. DS: Plan - Discharge Medications/Orders Prescriptions: New Albuterol Neb (0.083%) [Proventil Neb (0.083%)] 2.5 mg AEROSOL RTQID each Aspirin Chewable [ASA] 81 mg PO DAILY tab.chew Atorvastatin [Lipitor] 10 mg PO HS tab BuPROPion XL [Wellbutrin Xl] 150 mg PO DAILY tab.er.24h Carvedilol [Coreg] 6.25 mg PO BIDWM tab Ferrous Sulfate [Feosol] 324 mg PO WB tab Furosemide [Lasix 40 mg Tab] 40 mg PO DAILY tab Lisinopril [Prinivil] 10 mg PO DAILY tab Omeprazole [Prilosec] 40 mg PO ACB cap Potassium Chloride [K-DUR 10 mEq Tablet] 10 meq PO WB tab Galantamine ER [Razadyne ER] 16 mg PO WB cap Continue Fish Oil/Dha/Epa [Fish Oil 1,200 mg Fish Oil] 1 cap PO DAILY #0 Venlafaxine HCl [Venlafaxine HCl ER] 150 mg PO DAILY #0 Aspirin Chewable [ASA] 81 mg PO DAILY Cholecalciferol (Vitamin D3) [Vitamin D3] 1,000 unit PO DAILY Galantamine ER [Razadyne ER] 16 mg PO DAILY Omeprazole 40 mg PO DAILY Lisinopril [Prinivil] 10 mg PO DAILY Ferrous Sulfate 325 mg PO DAILY buPROPion HCl [Bupropion Xl] 150 mg PO DAILY Discontinued DiltiaZEM CD [Cardizem CD 240 MG] 240 mg PO DAILY Azithromycin [Zithromax] 1 tab PO DAILY Venlafaxine [Effexor] 75 mg PO DAILY - Patient/Caregiver Discharge Instructions Patient Instructions: Pneumonia (GEN), Heart Failure (DC) - Follow up Plan Disposition: 03 To [facility])
[2017-11-19] MEDS: LISINOPRIL 10 MG TABLET PO SCH (09:02)
[2017-11-19] MEDS: ASPIRIN 81 MG CHEWABLE TABLET PO SCH (09:02)
[2017-11-19] MEDS: CARVEDILOL 6.25 MG TABLET PO SCH (09:03)
[2017-11-19] MEDS: GALANTAMINE 16 MG PO SCH (09:04)
[2017-11-19] MEDS: FUROSEMIDE 40 MG TABLET PO SCH (09:04)
[2017-11-19] MEDS: FERROUS SULFATE 324 MG TABLET PO SCH (09:04)
[2017-11-19] MEDS: BuPROPion XL 150mg (24HR) TABLET PO SCH (09:04)
[2017-11-19 10:47] VITALS: RESP 15
== END 2017-11-19 11:35 | DRG 193 ==
LOC: MED 16:16
PROVIDERS: ADMIT Family Medicine; ATTEND Family Medicine